=== PATIENT | female | born 1950 | race Caucasian/White ===

== ENCOUNTER → 2016-08-23 | Outpatient (CLI) | payer OTHER ==
--- NOTE | 2016-08-23 10:26 | US ---
EXAMINATION TYPE: US liver DATE OF EXAM: 08/23/2016 COMPARISON: NONE CLINICAL HISTORY: Abn Liver Function Tests R94.5. EXAM MEASUREMENTS: Liver Length: 11.7 cm Gallbladder Wall: 0.3 cm CBD: 0.5 cm Right Kidney: 10.4 x 4.0 x 5.5 cm Pancreas: visualized portions wnl Liver: Homogeneous Gallbladder: No stones seen Evidence for sonographic Benton's sign: No CBD: wnl Right Kidney: No hydronephrosis or masses seen IMPRESSION: No worrisome intrahepatic mass or intrahepatic ductal dilatation is seen.
== END | disposition home or self-care (01) ==
LOC: RADUSWWP 09:36
PROVIDERS: ATTEND Internal Medicine
DX: R94.5 Abnormal results of liver function studies (principal)
CPT/HCPCS: 76705

== ENCOUNTER → 2016-08-30 | Outpatient (CLI) | payer OTHER ==
--- NOTE | 2016-08-30 09:42 | MM ---
Reason for exam: screening (asymptomatic). Last mammogram was performed 1 year and 11 months ago. History: Patient is postmenopausal. Family history of breast cancer in 2 grandmothers. Benign stereotactic core biopsy of the left breast, February 10, 2000. Core biopsy of the left breast. Physical Findings: A clinical breast exam by your physician is recommended on an annual basis and results should be correlated with mammographic findings. MG Screening Mammo w CAD Bilateral CC and MLO view(s) were taken. Prior study comparison: September 18, 2014, bilateral MG screening mammo w CAD. June 13, 2012, bilateral digital screening mammo w/CAD. There are scattered fibroglandular densities. Benign calcifications. There is no discrete abnormality. No significant changes when compared with prior studies. ASSESSMENT: Benign, BI-RAD 2 RECOMMENDATION: Routine screening mammogram of both breasts in 1 year.
== END | disposition home or self-care (01) ==
LOC: RADMAMWWP 07:20
PROVIDERS: ATTEND Internal Medicine
DX: Z12.31 Encounter for screening mammogram for malignant neoplasm of breast (principal)

== ENCOUNTER → 2017-11-20 | Outpatient (CLI) | payer OTHER ==
--- NOTE | 2017-11-21 12:49 | MM ---
Reason for exam: screening (asymptomatic). Last mammogram was performed 1 year and 3 months ago. History: Patient is postmenopausal. Family history of breast cancer in grandmother at age 65. Benign stereotactic core biopsy of the left breast, February 10, 2000. Core biopsy of the left breast. Physical Findings: A clinical breast exam by your physician is recommended on an annual basis and results should be correlated with mammographic findings. MG Screening Mammo w CAD Bilateral CC and MLO view(s) were taken. Prior study comparison: August 30, 2016, bilateral MG screening mammo w CAD. September 18, 2014, bilateral MG screening mammo w CAD. The breast tissue is heterogeneously dense. This may lower the sensitivity of mammography. Stable benign calcifications. There is no discrete abnormality. No significant changes when compared with prior studies. ASSESSMENT: Benign, BI-RAD 2 RECOMMENDATION: Routine screening mammogram of both breasts in 1 year.
== END | disposition home or self-care (01) ==
LOC: RADMAMWWP 09:23
PROVIDERS: ATTEND Internal Medicine
DX: Z12.31 Encounter for screening mammogram for malignant neoplasm of breast (principal)
CPT/HCPCS: 77067

== ENCOUNTER → 2019-03-21 | Outpatient (CLI) | payer MEDICARE, OTHER ==
--- NOTE | 2019-03-21 13:11 | MM ---
Reason for exam: screening (asymptomatic). Last mammogram was performed 1 year and 4 months ago. History: Patient is postmenopausal. Family history of breast cancer in grandmother at age 65. Benign stereotactic core biopsy of the left breast, February 10, 2000. Core biopsy of the left breast. Physical Findings: A clinical breast exam by your physician is recommended on an annual basis and results should be correlated with mammographic findings. MG 3D Screening Mammo W/Cad Bilateral CC and MLO view(s) were taken. Prior study comparison: November 20, 2017, bilateral MG screening mammo w CAD. August 30, 2016, bilateral MG screening mammo w CAD. The breast tissue is heterogeneously dense. This may lower the sensitivity of mammography. There are benign appearing round calcifications bilaterally. Previous mammotome biopsy in the left breast. There is no discrete abnormality. ASSESSMENT: Benign, BI-RAD 2 RECOMMENDATION: Routine screening mammogram of both breasts in 1 year.
== END | disposition home or self-care (01) ==
LOC: RADMAMWWP 07:51
PROVIDERS: ATTEND Internal Medicine
DX: Z12.31 Encounter for screening mammogram for malignant neoplasm of breast (principal)
CPT/HCPCS: 77063; 77067

== ENCOUNTER 2019-08-26 10:13 | Observation (INO) | payer MEDICARE, OTHER ==
[2019-08-26] MEDS ORDERED: ASPIRIN 81 MG PO STA (10:19)
[2019-08-26] MEDS ORDERED: hydrALAZINE HCL 20 MG/ML 1 ML VIAL IVP STA (10:20)
[2019-08-26] MEDS ORDERED: NITROGLYCERIN SL TABS 0.4 MG TAB SUBLINGUAL STA (10:20)
--- NOTE | 2019-08-26 10:27 | ED ---
Chest Pain HPI - General Chief Complaint: Chest Pain Stated Complaint: chest & jaw pain Time Seen by Provider: 08/26/19 10:18 Source: patient Mode of arrival: ambulatory Limitations: no limitations - History of Present Illness Initial Comments: 68yo female presenting today for chief complaint of substernal chest pressure. Patient states that she woke up at 5 AM with substernal chest pressure she states that she got up and about 2 out the trash the pain seemed to get better however was still present. She states she noticed discomfort of her left jaw. Patient denies any numbness. Patient denies any arm pain and back pain or sharp pains denies any pain with deep inspiration leg swelling history of DVT or pulmonary embolism. Patient denies recent surgeries, immobilization or active cancer. She denies experiencing this symptoms. Before denies specific aggrevating factors. Patient states she took 650mg of aspirin this morning.Patient states she has very mild pressure, almost nonexistant. Patient denies jaw pain currently. Patient appears well on arrival, not diaphoretic. No distress. - Related Data Home Medications Medication Instructions Recorded Confirmed Aspirin EC [Ecotrin Low Dose] 81 mg PO HS 08/26/19 08/26/19 Atorvastatin [Lipitor] 40 mg PO HS 08/26/19 08/26/19 Cholecalciferol [Vitamin D3 (25 2,000 unit PO HS 08/26/19 08/26/19 Mcg = 1000 Iu)] Lisinopril-Hctz 20-25 mg 1 tab PO HS 08/26/19 08/26/19 [Zestoretic 20-25] metFORMIN HCL 1,000 mg PO BID 08/26/19 08/26/19 Allergies Allergy/AdvReac Type Severity Reaction Status Date / Time No Known Allergies Allergy Verified 08/26/19 10:17 Review of Systems ROS Statement: Those systems with pertinent positive or pertinent negative responses have been documented in the HPI. ROS Other: All systems not noted in ROS Statement are negative. EKG Findings - EKG Comments: EKG Findings:: Ventricular rate 93 bpm, TN interval 130 ms, QRS duration 84 ms, QT/QTc 56/442ms No ST elevation or depression. Past Medical History Past Medical History: Diabetes Mellitus, Hyperlipidemia, Hypertension History of Any Multi-Drug Resistant Organisms: None Reported Past Surgical History: No Surgical Hx Reported Past Psychological History: No Psychological Hx Reported Smoking Status: Never smoker Past Alcohol Use History: Occasional Past Drug Use History: None Reported General Exam - General Exam Comments Initial Comments: General: The patient is awake and alert, in no distress, no diaphoresis Eye: +3 mm pupils are equal, round and reactive to light, extra-ocular movements are intact. No nystagmus. There is normal conjunctiva bilaterally. No signs of icterus. Ears, nose, mouth and throat: There are moist mucous membranes and no oral lesions. Neck: The neck is supple, there is no tenderness or JVD. Cardiovascular: There is a regular rate and rhythm. No murmur, rub or gallop is appreciated. Respiratory: Lungs are clear to auscultation, respirations are non-labored, kristian ath sounds are equal. No wheezes, stridor, rales, or rhonchi. Musculoskeletal: Normal ROM, no tenderness. Strength 5/5. Sensation intact. Radial pulses equal bilaterally 2+. Neurological: A&O x 3. CN II-XII intact grossly, There are no obvious motor or sensory deficits. Coordination appears grossly intact. Speech is normal. Skin: Skin is warm and dry and no rashes or lesions are noted. Psychiatric: Cooperative, appropriate mood & affect, normal judgment. Limitations: no limitations Course Vital Signs 08/26/19 08/26/19 08/26/19 10:14 10:26 10:27 Temperature 98.7 F Pulse Rate 104 H 84 Pulse Rate [ 84 Opener Tender ] Respiratory 18 10 L Rate Blood Pressure 213/104 197/98 O2 Sat by Pulse 99 99 Oximetry 08/26/19 08/26/19 08/26/19 10:30 10:45 10:59 Temperature Pulse Rate 85 Pulse Rate [ Opener Tender ] Respiratory 10 L Rate Blood Pressure 189/105 93/53 O2 Sat by Pulse 95 Oximetry 08/26/19 08/26/19 08/26/19 11:00 11:15 11:30 Temperature Pulse Rate 66 80 Pulse Rate [ Opener Tender ] Respiratory 22 15 12 Rate Blood Pressure 93/58 98/54 O2 Sat by Pulse 95 96 97 Oximetry 08/26/19 11:45 Temperature Pulse Rate 72 Pulse Rate [ Opener Tender ] Respiratory 11 L Rate Blood Pressure 110/61 O2 Sat by Pulse 97 Oximetry - Reevaluation(s) Reevaluation #1: Pt has an episode of pre-syncope secondary to drop in blood pressure, became diaphoretic. Pt was to receive nitroglycerin first then only receive hydralazine if BP remained elevated. Both were given at the same time. Pt has no focal neurological deficts. States she feels good now.. BP increasing. IVF bolus running. 08/26/19 11:29 Chest Pain MDM - MDM 68yo female presenting today for cc of chest pressure, jaw pain. No known CAD history concerning risk factors/story. Pt dimer WNL. Patient will be admitted for serial troponins, cardiology evaluation. Patient agreeable to admission and care plan. Initial troponin (-). Smith agreeable to admission. Disposition Clinical Impression: Chest pressure, Jaw pain Disposition: ADMITTED IP TO THIS HOSP Condition: Stable Additional Instructions: Please use medication as discussed. Please follow-up with family doctor in the next 2 days. Please return to emergency room if the symptoms increase or worsen or for any other concerns. Is patient prescribed a controlled substance at d/c from ED?: No Referrals: Amparo Stewart MD [Primary Care Provider] - 1-2 days Time of Disposition: 11:32 Decision to Admit Reason: Admit from EC Decision Date: 08/26/19 Decision Time: 11:32
[2019-08-26 10:34] LABS: Basophils # (A) 0.1 k/uL (0-0.2); Basophils % (A) 1 %; Eosinophils # (A) 0.3 k/uL (0-0.7); Eosinophils % (A) 3 %; HCT 44.3 % (34.0-46.0); HGB 14.7 gm/dL (11.4-16.0); Lymphocytes # (A) 2.6 k/uL (1.0-4.8); Lymphocytes % (A) 32 %; MCH 30.5 pg (25.0-35.0); MCHC 33.1 g/dL (31.0-37.0); MCV 92.1 fL (80.0-100.0); Mean Platelet Volume 7.1; Monocytes # (A) 0.6 k/uL (0-1.0); Monocytes % (A) 7 %; Neutrophils # (A) 4.3 k/uL (1.3-7.7); Neutrophils % (A) 53 %; Platelet Count 251 k/uL (150-450); RBC 4.81 m/uL (3.80-5.40); RDW 13.2 % (11.5-15.5)
--- NOTE | 2019-08-26 10:40 | XR ---
EXAMINATION TYPE: XR chest 2V DATE OF EXAM: 08/26/2019 COMPARISON: NONE TECHNIQUE: PA and lateral views submitted. HISTORY: Hypertension FINDINGS: The lungs are clear and there is no pneumothorax, pleural effusion, or focal pneumonia. Lungs are c lear. No overt failure. Heart size normal. Degenerative change of the spine. IMPRESSION: 1. No acute process.
[2019-08-26 10:46] LABS: ALT 56 U/L (4-34); AST 44 U/L (14-36); African American GFR (CKD) >90 (>60 ml/min/1.73 sqM); Albumin 5.1 g/dL (3.5-5.0); Alkaline Phosphatase 111 U/L (38-126); Anion Gap 15 mmol/L; Blood Urea Nitrogen 12 mg/dL (7-17); Calcium 9.5 mg/dL (8.4-10.2); Carbon Dioxide 23 mmol/L (22-30); Chloride 98 mmol/L (98-107); Glucose 106 mg/dL (74-99); Magnesium 1.3 mg/dL (1.6-2.3); Non-African American GFR(CKD) >90 (>60 ml/min/1.73 sqM); Potassium 3.9 mmol/L (3.5-5.1); Sodium 136 mmol/L (137-145); Total Bilirubin 0.7 mg/dL (0.2-1.3); Total Protein 8.1 g/dL (6.3-8.2)
[2019-08-26 10:57] LABS: D-Dimer 0.28 mg/L FEU (<0.60); INR 0.9 (<1.2); Prothrombin Time 9.7 sec (9.0-12.0)
[2019-08-26 10:58] LABS: Partial Thromboplastin Time 21.1 sec (22.0-30.0)
[2019-08-26] MEDS ORDERED: SODIUM CHLORIDE 0.9% 500 ML 500 ML IV ONE (11:23)
[2019-08-26] MEDS ORDERED: SODIUM CHLORIDE 0.9% 1,000 ML IV ONE (11:23)
[2019-08-26] MEDS ORDERED: NITROGLYCERIN SL TABS 0.4 MG TAB SUBLINGUAL PRN (12:13)
[2019-08-26] MEDS: MAGNESIUM SULFATE-D5W PMX 1 GM in DEXTROSE/WATER 1 100ML.BAG IVPB SCH ×3 (13:50→16:45)
--- NOTE | 2019-08-26 14:22 | P.HPIM ---
History of Present Illness 68-year-old pleasant female came in with comments of substernal chest pain is started today patient chest pain is epigastric in the epigastric area as well as as well pressure-like sensation mild 3-4/10 in severity patient pain signi ficantly improved today patient was given a hydralazine and nitro patch after she came to ER which dropped her blood sugar blood pressure leading to dizziness and near syncopal episode.patient denied any fever chills patient had a Chest x- ray did not show any significant abnormality EKG did not show any capacity with changes. Her troponin is negative patient is not diaphoretic patient is not short of breath. Patient chest pain appears to be atypical.she does have history of hypertension. Patient does have history of fremitus mellitus as well as hyperlipidemia as well denied any smoking history. Denied any family history of premature coronary artery disease. Patient blood pressures significant intraoperative near syncopal episode of the hydralazine and Nitrostat and patient was given as of IV fluids and present and 100 mL of normal saline Review of Systems REVIEW OF SYSTEMS: CONSTITUTIONAL: No fever, no malaise, no fatigue. HEENT: No recent visual problems or hearing problems. Denied any sore throat. CARDIOVASCULAR: No orthopnea, PND, no palpitations, no syncope. PULMONARY: No shortness of breath, no cough, no hemoptysis. GASTROINTESTINAL: No diarrhea, no nausea, no vomiting, no abdominal pain. NEUROLOGICAL: No headaches, no weakness, no numbness. HEMATOLOGICAL: Denies any bleeding or petechiae. GENITOURINARY: Denies any burning micturition, frequency, or urgency. MUSCULOSKELETAL/RHEUMATOLOGICAL: Denies any joint pain, swelling, or any muscle pain. ENDOCRINE: Denies any polyuria or polydipsia. The rest of the 14-point review of systems is negative. Past Medical History Past Medical History: Diabetes Mellitus, Hyperlipidemia, Hypertension History of Any Multi-Drug Resistant Organisms: None Reported Past Surgical History: No Surgical Hx Reported Past Psychological History: No Psychological Hx Reported Smoking Status: Never smoker Past Alcohol Use History: Occasional Past Drug Use History: None Reported Medications and Allergies Home Medications Medication Instructions Recorded Confirmed Type Aspirin EC [Ecotrin Low Dose] 81 mg PO HS 08/26/19 08/26/19 History Atorvastatin [Lipitor] 40 mg PO HS 08/26/19 08/26/19 History Cholecalciferol [Vitamin D3 (25 2,000 unit PO HS 08/26/19 08/26/19 History Mcg = 1000 Iu)] Lisinopril-Hctz 20-25 mg 1 tab PO HS 08/26/19 08/26/19 History [Zestoretic 20-25] metFORMIN HCL 1,000 mg PO BID 08/26/19 08/26/19 History Allergies Allergy/AdvReac Type Severity Reaction Status Date / Time No Known Allergies Allergy Verified 08/26/19 10:17 Physical Exam Vitals: Vital Signs Temp Pulse Pulse Resp BP Pulse Ox 08/26/19 13:51 98.7 F 74 18 138/72 97 08/26/19 13:48 74 18 138/72 08/26/19 13:15 138/72 08/26/19 13:00 90 17 129/68 97 08/26/19 12:58 88 18 129/68 98 08/26/19 12:45 81 127/69 98 08/26/19 12:30 79 11 L 133/68 98 08/26/19 12:15 89 8 L 141/91 97 08/26/19 12:00 93 8 L 105/55 98 08/26/19 11:45 72 11 L 110/61 97 08/26/19 11:30 12 98/54 97 08/26/19 11:15 80 15 93/58 96 08/26/19 11:00 66 22 95 08/26/19 10:59 93/53 08/26/19 10:45 85 10 L 95 08/26/19 10:30 189/105 08/26/19 10:27 84 08/26/19 10:26 84 10 L 197/98 99 08/26/19 10:14 98.7 F 104 H 18 213/104 99 Intake and Output 08/25/19 08/26/19 08/26/19 22:59 06:59 14:59 Intake Total 1100 Balance 1100 Intake: Amount of Fluid Infused ( 1100 ml) Other: Weight 70.307 kg PHYSICAL EXAMINATION: GENERAL: The patient is alert and oriented x3, not in any acute distress. Well developed, well nourished. HEENT: Pupils are round and equally reacting to light. EOMI. No scleral icterus. No conjunctival pallor. Normocephalic, atraumatic. No pharyngeal erythema. No thyromegaly. CARDIOVASCULAR: S1 and S2 present. No murmurs, rubs, or gallops. PULMONARY: Chest is clear to auscultation, no wheezing or crackles. ABDOMEN: Soft, nontender, nondistended, normoactive bowel sounds. No palpable organomegaly. MUSCULOSKELETAL: No joint swelling or deformity. EXTREMITIES: No cyanosis, clubbing, or pedal edema. NEUROLOGICAL: Gross neurological examination did not reveal any focal deficits. SKIN: No rashes. Results CBC & Chem 7: 08/26/19 10:15 08/26/19 10:15 Labs: Abnormal Lab Results - Last 24 Hours (Table) 08/26/19 08/26/19 Range/Units 10:15 10:15 APTT 21.1 L (22.0-30.0) sec Sodium 136 L (137-145) mmol/L Glucose 106 H (74-99) mg/dL Magnesium 1.3 L (1.6-2.3) mg/dL AST 44 H (14-36) U/L ALT 56 H (4-34) U/L Albumin 5.1 H (3.5-5.0) g/dL Assessment and Plan Plan: -chest pain: Patient chest pain appears to be difficult will rule out acute coronary syndromes patient probably will need a stress test so because of her risk factors cardiology will evaluate the patient.etiology of chest pain is not clear . -Hypertension resume her lisinopril for low vitamin Red patient blood p ressure was low because of her Nitrostat and hydralazine. Patient was given some believe it will be okay to give her lisinopril tomorrow -Type 2 diabetes mellitus patient was started on sliding scale insulin metformin will be held temporally -Hyperlipidemia With atorvastatin -DVT prophylaxis early ambulation
[2019-08-26 16:55] LABS: Glucose,Whole Blood 148 mg/dL (75-99)
[2019-08-26] MEDS: SODIUM CHLORIDE 0.9% 1,000 ML IV SCH ×2 (16:58→23:44)
[2019-08-26] MEDS: INSULIN ASPART (NovoLOG) 100 UNIT/ML VIAL SQ SCH ×2 (17:02→20:42)
[2019-08-26 20:25] LABS: Glucose,Whole Blood 148 mg/dL (75-99)
[2019-08-26] MEDS ORDERED: LISINOPRIL-HCTZ 20-25 MG 1 EACH TAB PO SCH (21:00)
[2019-08-26] MEDS ORDERED: ATORVASTATIN 40 MG TAB PO SCH (21:00)
[2019-08-26 23:33] VITALS: RESP 16
[2019-08-27 07:01] LABS: Glucose,Whole Blood 125 mg/dL (75-99)
[2019-08-27] MEDS: INSULIN ASPART (NovoLOG) 100 UNIT/ML VIAL SQ SCH ×2 (07:32→11:30)
[2019-08-27] MEDS: LISINOPRIL 20 MG TAB PO SCH ×2 (07:32→08:02)
[2019-08-27] MEDS: ASPIRIN 325 MG TAB PO SCH ×2 (07:32→08:02)
[2019-08-27] MEDS: SODIUM CHLORIDE 0.9% 1,000 ML IV SCH (07:32)
[2019-08-27] MEDS ORDERED: HYDROCHLOROTHIAZIDE 25 MG TAB PO SCH (09:00)
[2019-08-27 09:05] LABS: HCT 37.7 % (34.0-46.0); HGB 12.5 gm/dL (11.4-16.0); MCH 31.1 pg (25.0-35.0); MCHC 33.1 g/dL (31.0-37.0); Mean Platelet Volume 7.2; Platelet Count 220 k/uL (150-450); RBC 4.01 m/uL (3.80-5.40); RDW 13.6 % (11.5-15.5); WBC 6.4 k/uL (3.8-10.6)
[2019-08-27] MEDS ORDERED: TRIAMTERENE-HCTZ 37.5-25MG 1 EACH CAP PO SCH (09:15)
[2019-08-27 09:22] LABS: African American GFR (CKD) >90 (>60 ml/min/1.73 sqM); Anion Gap 6 mmol/L; Blood Urea Nitrogen 11 mg/dL (7-17); Calcium 8.5 mg/dL (8.4-10.2); Carbon Dioxide 25 mmol/L (22-30); Chloride 107 mmol/L (98-107); Cholesterol 171 mg/dL (<200); Glucose 127 mg/dL (74-99); HDL Cholesterol 57 mg/dL (40-60); LDL Cholesterol,Calculated 77 mg/dL (0-99); Non-African American GFR(CKD) >90 (>60 ml/min/1.73 sqM); Potassium 4.5 mmol/L (3.5-5.1); Sodium 138 mmol/L (137-145); Triglycerides 186 mg/dL (<150)
--- NOTE | 2019-08-27 09:56 | P.CRDCN ---
<Lalita Angel - Last Filed: 08/27/19 09:54> History of Present Illness History of present illness: HISTORY OF PRESENTING ILLNESS This is a pleasant 68-year-old female past medical history significant for diabetes mellitus, hypertension and dyslipidemia. 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 We have been asked to see in consultation for chest pain. She states she woke up yesterday morning around 0500 with a discomfort in her chest in the mid-sternal region. She initially thought maybe she had slept wrong or pulled a muscle. She attempted to change her position but just couldn't get comfortable. She got out of bed to start her day. As the day went on she also was feeling a sharp discomfort shooting down her right arm at times. She checked her blood pressure and states it was around 155/90. Shortly thereafter she felt a full sensation in the right jaw. She denies feeling any associated shortness of breath, palpitations, dizziness, nausea, vomiting or diaphoresis. Given her ongoing symptoms of chest pain, jaw and arm pain she called her PCP who advised she come to the ER for evaluation. On arrival she was having ongoing chest and jaw discomfort, the arm pain had subsided. Her blood pressure on arrival was 213/104. She takes her lisinopril/hctz at night and did take it the night before. She was given hydralazine 10 mg IV and her blood pressure did come down. She states she does check her blood pressure at home usually weekly, but sometimes more often and it typically runs around 130's systolic over 80. Chest, jaw and arm pain has resolved since admission. DIAGNOSTICS EKG reveals sinus mechanism with single PAC. Chest xray negative for an acute cardiopulmonary process. Laboratory reviewed, cardiac enzymes negative 3, CBC unremarkable, d-dimer 0.28, sodium 136, potassium 3.9, creatinine 0.6, mesion 1.3, AST 44 and ALT 56. Current cardiac medications include lisinopril/HCTZ 20/25 mg at bedtime, aspirin 81 mg daily and atorvastatin 40 mg daily. REVIEW OF SYSTEMS At the time of my exam: CONSTITUTIONAL: Denies fever or chills. CARDIOVASCULAR: Denies chest pain, shortness of breath, orthopnea, PND or palpitations. RESPIRATORY: Denies cough. GASTROINTESTINAL: Denies abdominal pain, diarrhea, constipation, nausea or vomiting. MUSCULOSKELETAL: Denies myalgias. NEUROLOGIC: Denies numbness, tingling or weakness. ENDOCRINE: Denies fatigue, weight change, polydipsia or polyurina. GENITOURINARY: Denies burning, hematuria or urgency with micturation. HEMATOLOGIC: Denies history of anemia or bleeding. PHYSICAL EXAMINATION Blood pressure 139/82 heart rate 94 afebrile and maintaining oxygen saturation on room air. CONSTITUTIONAL: No apparent distress. HEENT: Head is normocephalic. Pupils are equal, round. Sclerae anicteric. Mucous membranes of the mouth are moist. No JVD. No carotid bruit. CHEST EXAMINATION: Lungs are clear to auscultation. No chest wall tenderness is noted on palpation or with deep breathing. HEART EXAMINATION: Regular rate and rhythm. S1, S2 heard. Soft systolic ejection murmur at the apex, no gallops or rub. ABDOMEN: Soft, nontender. Positive bowel sounds. EXTREMITIES: 2+ peripheral pulses, no lower extremity edema and no calf tenderness. NEUROLOGIC EXAMINATION: Patient is awake, alert and oriented x3. ASSESSMENT Chrst pain, an acute coronary event has been ruled out. Hypertensive emergency Hypomagnesemia History of hypertension Diabetes mellitus Dyslipidemia PLAN An acute coronary event has been ruled out. Obtain 2D echocardiogram and doppler study to assess cardiac structure and function. Repeat magnesium level. Check lipid profile. Resume lisinopril and discontinue hydrochlorothiazide. Initiate dyazide for optimal blood pressure control. This will also retain some level of magnesium. Perform stress echo to assess for stress induced ischemia. Thank you kindly for this consultation. Nurse Practitioner note has been reviewed, I agree with a documented findings and plan of care. Patient was seen and examined. Past Medical History Past Medical History: Diabetes Mellitus, Hyperlipidemia, Hypertension Additional Past Medical History / Comment(s): breast biopsy-negative. History of Any Multi-Drug Resistant Organisms: None Reported Past Surgical History: No Surgical Hx Reported Past Anesthesia/Blood Transfusion Reactions: No Reported Reaction Past Psychological History: No Psychological Hx Reported Smoking Status: Never smoker Past Alcohol Use History: Occasional Past Drug Use History: None Reported Medications and Allergies Home Medications Medication Instructions Recorded Confirmed Type Aspirin EC [Ecotrin Low Dose] 81 mg PO HS 08/26/19 08/26/19 History Atorvastatin [Lipitor] 40 mg PO HS 08/26/19 08/26/19 History Cholecalciferol [Vitamin D3 (25 2,000 unit PO HS 08/26/19 08/26/19 History Mcg = 1000 Iu)] Lisinopril-Hctz 20-25 mg 1 tab PO HS 08/26/19 08/26/19 History [Zestoretic 20-25] metFORMIN HCL 1,000 mg PO BID 08/26/19 08/26/19 History Allergies Allergy/AdvReac Type Severity Reaction Status Date / Time No Known Allergies Allergy Verified 08/26/19 10:17 Physical Exam Vitals: Vital Signs Temp Pulse Pulse Pulse Resp BP BP 08/27/19 07:53 16 08/27/19 03:31 97.7 F 94 16 139/82 08/26/19 23:23 97.6 F 78 16 146/81 08/26/19 19:30 97.7 F 80 14 136/70 08/26/19 16:00 97.9 F 98 14 130/73 08/26/19 14:31 98.2 F 102 H 12 145/79 08/26/19 13:51 98.7 F 74 18 138/72 08/26/19 13:48 74 18 138/72 08/26/19 13:15 138/72 08/26/19 13:00 90 17 129/68 08/26/19 12:58 88 18 129/68 08/26/19 12:45 81 127/69 08/26/19 12:30 79 11 L 133/68 08/26/19 12:15 89 8 L 141/91 08/26/19 12:00 93 8 L 105/55 08/26/19 11:45 72 11 L 110/61 08/26/19 11:30 12 98/54 08/26/19 11:15 80 15 93/58 08/26/19 11:00 66 22 08/26/19 10:59 93/53 08/26/19 10:45 85 10 L 08/26/19 10:30 189/105 08/26/19 10:27 84 08/26/19 10:26 84 10 L 197/98 08/26/19 10:14 98.7 F 104 H 18 213/104 Pulse Ox 08/27/19 07:53 08/27/19 03:31 97 08/26/19 23:23 96 08/26/19 19:30 97 08/26/19 16:00 97 08/26/19 14:31 97 08/26/19 13:51 97 08/26/19 13:48 08/26/19 13:15 08/26/19 13:00 97 08/26/19 12:58 98 08/26/19 12:45 98 08/26/19 12:30 98 08/26/19 12:15 97 08/26/19 12:00 98 08/26/19 11:45 97 08/26/19 11:30 97 08/26/19 11:15 96 08/26/19 11:00 95 08/26/19 10:59 08/26/19 10:45 95 08/26/19 10:30 08/26/19 10:27 08/26/19 10:26 99 08/26/19 10:14 99 Intake and Output 08/26/19 08/27/19 08/27/19 22:59 06:59 14:59 Intake Total 270 0 Balance 270 0 Intake: Oral 270 0 Other: Voiding Method Toilet Toilet # Voids 2 1 # Bowel Movements 1 Results 08/27/19 08:44 08/27/19 08:44 Cardiac Enzymes 08/26/19 08/26/19 08/26/19 Range/Units 10:15 10:15 16:02 AST 44 H (14-36) U/L Troponin I <0.012 <0.012 (0.000-0.034) ng/mL 08/26/19 Range/Units 22:32 AST (14-36) U/L Troponin I <0.012 (0.000-0.034) ng/mL Coagulation 08/26/19 Range/Units 10:15 PT 9.7 (9.0-12.0) sec APTT 21.1 L (22.0-30.0) sec CBC 08/26/19 Range/Units 10:15 WBC 8.0 (3.8-10.6) k/uL RBC 4.81 (3.80-5.40) m/uL Hgb 14.7 (11.4-16.0) gm/dL Hct 44.3 (34.0-46.0) % Plt Count 251 (150-450) k/uL Comprehensive Metabolic Panel 08/26/19 Range/Units 10:15 Sodium 136 L (137-145) mmol/L Potassium 3.9 (3.5-5.1) mmol/L Chloride 98 (98-107) mmol/L Carbon Dioxide 23 (22-30) mmol/L BUN 12 (7-17) mg/dL Creatinine 0.60 (0.52-1.04) mg/dL Glucose 106 H (74-99) mg/dL Calcium 9.5 (8.4-10.2) mg/dL AST 44 H (14-36) U/L ALT 56 H (4-34) U/L Alkaline Phosphatase 111 (38-126) U/L Total Protein 8.1 (6.3-8.2) g/dL Albumin 5.1 H (3.5-5.0) g/dL Current Medications Generic Name Dose Route Start Last Admin Trade Name Freq PRN Reason Stop Dose Admin Aspirin 81 mg 08/27/19 09:00 Aspirin PO DAILY EARL Atorvastatin Calcium 40 mg 08/26/19 21:00 08/26/19 20:42 Lipitor PO 40 mg HS EARL Administration Hydrochlorothiazide 25 mg 08/27/19 09:00 Hydrodiuril PO DAILY EARL Sodium Chloride 1,000 mls @ 100 mls/hr 08/26/19 14:15 08/27/19 07:32 Saline 0.9% IV 100 mls/hr .Q10H EARL Administration Insulin Aspart 0 unit 08/26/19 17:30 08/27/19 07:32 Novolog SQ Not Given ACHS [facility] Protocol Lisinopril 20 mg 08/27/19 09:00 08/27/19 08:02 Zestril PO 20 mg DAILY EARL Administration Nitroglycerin 0.4 mg 08/26/19 12:13 Nitrostat SUBLINGUAL Q5M PRN Chest Pain Intake and Output 08/26/19 08/27/19 08/27/19 22:59 06:59 14:59 Intake Total 270 0 Balance 270 0 Intake: Oral 270 0 Other: Voiding Method Toilet Toilet # Voids 2 1 # Bowel Movements 1 08/26/19 10:15 08/26/19 10:15 <Ronald Craig - Last Filed: 08/27/19 10:56> Physical Exam Vitals: Vital Signs Temp Pulse Pulse Resp BP BP Pulse Ox 08/27/19 09:16 98.0 F 72 16 145/78 96 08/27/19 07:53 16 08/27/19 03:31 97.7 F 94 16 139/82 97 08/26/19 23:23 97.6 F 78 16 146/81 96 08/26/19 19:30 97.7 F 80 14 136/70 97 08/26/19 16:00 97.9 F 98 14 130/73 97 08/26/19 14:31 98.2 F 102 H 12 145/79 97 08/26/19 13:51 98.7 F 74 18 138/72 97 08/26/19 13:48 74 18 138/72 08/26/19 13:15 138/72 08/26/19 13:00 90 17 129/68 97 08/26/19 12:58 88 18 129/68 98 08/26/19 12:45 81 127/69 98 08/26/19 12:30 79 11 L 133/68 98 08/26/19 12:15 89 8 L 141/91 97 08/26/19 12:00 93 8 L 105/55 98 08/26/19 11:45 72 11 L 110/61 97 08/26/19 11:30 12 98/54 97 08/26/19 11:15 80 15 93/58 96 08/26/19 11:00 66 22 95 08/26/19 10:59 93/53 Intake and Output 08/26/19 08/27/19 08/27/19 22:59 06:59 14:59 Intake Total 270 0 Balance 270 0 Intake: Oral 270 0 Other: Voiding Method Toilet Toilet # Voids 2 1 # Bowel Movements 1 Results 08/27/19 08:44 08/27/19 08:44 Cardiac Enzymes 08/26/19 08/26/19 08/26/19 Range/Units 10:15 16:02 22:32 Troponin I <0.012 <0.012 <0.012 (0.000-0.034) ng/mL Coagulation 08/26/19 Range/Units 10:15 PT 9.7 (9.0-12.0) sec APTT 21.1 L (22.0-30.0) sec Lipids 08/27/19 Range/Units 08:44 Triglycerides 186 H (<150) mg/dL Cholesterol 171 (<200) mg/dL HDL Cholesterol 57 (40-60) mg/dL CBC 08/27/19 Range/Units 08:44 WBC 6.4 (3.8-10.6) k/uL RBC 4.01 (3.80-5.40) m/uL Hgb 12.5 (11.4-16.0) gm/dL Hct 37.7 (34.0-46.0) % Plt Count 220 (150-450) k/uL Comprehensive Metabolic Panel 08/27/19 Range/Units 08:44 Sodium 138 (137-145) mmol/L Potassium 4.5 (3.5-5.1) mmol/L Chloride 107 (98-107) mmol/L Carbon Dioxide 25 (22-30) mmol/L BUN 11 (7-17) mg/dL Creatinine 0.57 (0.52-1.04) mg/dL Glucose 127 H (74-99) mg/dL Calcium 8.5 (8.4-10.2) mg/dL Current Medications Generic Name Dose Route Start Last Admin Trade Name Freq PRN Reason Stop Dose Admin Aspirin 81 mg 08/28/19 09:00 08/27/19 08:24 Aspirin PO Not Given DAILY EARL Atorvastatin Calcium 40 mg 08/26/19 21:00 08/26/19 20:42 Lipitor PO 40 mg HS EARL Administration Hydrochlorothiazide 25 mg 08/27/19 09:00 08/27/19 08:56 Hydrodiuril PO Not Given DAILY EARL Sodium Chloride 1,000 mls @ 100 mls/hr 08/26/19 14:15 08/27/19 07:32 Saline 0.9% IV 100 mls/hr .Q10H EARL Administration Insulin Aspart 0 unit 08/26/19 17:30 08/27/19 07:32 Novolog SQ Not Given ACHS EARL Protocol Lisinopril 20 mg 08/27/19 09:00 08/27/19 08:02 Zestril PO 20 mg DAILY EARL Administration Nitroglycerin 0.4 mg 08/26/19 12:13 Nitrostat SUBLINGUAL Q5M PRN Chest Pain Triamterene/HCTZ 1 each 08/27/19 09:15 Dyazide PO DAILY EARL Intake and Output 08/26/19 08/27/19 08/27/19 22:59 06:59 14:59 Intake Total 270 0 Balance 270 0 Intake: Oral 270 0 Other: Voiding Method Toilet Toilet # Voids 2 1 # Bowel Movements 1 08/27/19 08:44 08/27/19 08:44
--- NOTE | 2019-08-27 10:56 | P.PCN ---
Preoperative Diagnosis: Impression has a BCNX in chamber pacemaker implanted in [place] Threshold is less than 1 V at 0.4 ms R waves between 45 mV Pacing impedance normal The device is been programmed to VVIR 60 to 1:30 bpm, patient has underlying atrial fibrillation with normal heart rates Suggest Reprogrammed device to VVI 50 beats a minute
--- NOTE | 2019-08-27 11:05 | P.DS ---
Providers Date of admission: 08/26/19 11:30 Attending physician: Romina Oro Consults: 08/26/19 12:13 Consult Physician Urgent Consulting Provider: Naveen Bailey Consult Reason/Comments: CP r/o Do you want consulting provider notified?: Yes, Notify in am Primary care physician: Amparo Stewart [facility] Course: Patient is undergoing stress test admitted for chest pain, we ruled out acute coronary syndromes. Patient's present medications were changed by cardiology and patient will be discharged today patient will benefit from a repeat basic metabolic profile in about a week as the patient was started on new diuretic. PHYSICAL EXAMINATION: GENERAL: The patient is alert and oriented x3, not in any acute distress. Well developed, well nourished. HEENT: Pupils are round and equally reacting to light. EOMI. No scleral icterus. No conjunctival pallor. Normocephalic, atraumatic. No pharyngeal erythema. No thyromegaly. CARDIOVASCULAR: S1 and S2 present. No murmurs, rubs, or gallops. PULMONARY: Chest is clear to auscultation, no wheezing or crackles. ABDOMEN: Soft, nontender, nondistended, normoactive bowel sounds. No palpable organomegaly. MUSCULOSKELETAL: No joint swelling or deformity. EXTREMITIES: No cyanosis, clubbing, or pedal edema. NEUROLOGICAL: Gross neurological examination did not reveal any focal deficits. SKIN: No rashes. Please refer to my HPI from yesterday for further details of hospitalization and the other medical problems were addressed during this hospitalization Patient Condition at Discharge: Stable Plan - Discharge Summary Discharge Rx Participant: No New Discharge Prescriptions: New Triamterene-Hctz 37.5-25Mg [Dyazide 37.5-25 Capsule] 1 each PO DAILY #90 cap Lisinopril [Zestril] 20 mg PO DAILY #90 tab Discontinued Lisinopril-Hctz 20-25 mg [Zestoretic 20-25] 1 tab PO HS No Action metFORMIN HCL 1,000 mg PO BID Cholecalciferol [Vitamin D3 (25 Mcg = 1000 Iu)] 2,000 unit PO HS Atorvastatin [Lipitor] 40 mg PO HS Aspirin EC [Ecotrin Low Dose] 81 mg PO HS Discharge Medication List Aspirin EC [Ecotrin Low Dose] 81 mg PO HS 08/26/19 [History] Atorvastatin [Lipitor] 40 mg PO HS 08/26/19 [History] Cholecalciferol [Vitamin D3 (25 Mcg = 1000 Iu)] 2,000 unit PO HS 08/26/19 [History] metFORMIN HCL 1,000 mg PO BID 08/26/19 [History] Lisinopril [Zestril] 20 mg PO DAILY #90 tab 08/27/19 [Rx] Triamterene-Hctz 37.5-25Mg [Dyazide 37.5-25 Capsule] 1 each PO DAILY #90 cap 08/27/19 [Rx] Follow up Appointment(s)/Referral(s): Ronald Craig MD [STAFF PHYSICIAN] - 3 Weeks Amparo Stewart MD [Primary Care Provider] - 1-2 days Patient Instructions/Handouts: Cardiac Stress Test (DC) Activity/Diet/Wound Care/Special Instructions: Please use medication as discussed. Please follow-up with family doctor in the next 2 days. Please return to emergency room if the symptoms increase or worsen or for any other concerns. Discharge Disposition: HOME SELF-CARE
[2019-08-27 11:28] VITALS: BP 154/82; PULSE 83; TEMP 98.1
[2019-08-27 11:30] LABS: Glucose,Whole Blood 138 mg/dL (75-99)
--- NOTE | 2019-08-27 12:05 | P.STRESS ---
- Stress Test Note Stress Test Results/Findings: Exam Performed: stress echo exercise with con Exam Date: 08/27/19 Reason for Exam: Chest Pain Height: 5 ft 2 in Weight: 70.31 kg Protocol: [place] Stage: 3 Duration of Exercise: 7:59 Resting Heart Rate: 71 Resting Blood Pressure: 140/64 Maximum Achieved Heart Rate: 173 Maximum Achieved Blood Pressure: 217/78 85% PMHR: 131 100% PMHR: 154 METS: 9.3 Technologist Comment: Stress Test Results/Findings: Baseline heart rate 71 beats a minute, Baseline blood pressure 140/64 mmHg the center ECG shows sinus rhythm with normal ST segments Patient exercised on a [place] protocol for 8 minutes achieving a peak heart rate of 173 beats a minute. She had an intermediate hypertensive response to exerc ise. Peak blood pressure 217/78 mmHg and 220/92 mmHg PVCs and ventricular couplets were noted during the stress test no nonsustained ventricular tachycardia no ST segment abnormalities noted at peak excise or during early recovery Mild ST depression in lead into recovery 0.5 mm but without any symptoms Baseline 2-D echo showed normal LV systolic function without segmental wall motion abnormalities Definity contrast was used Extremities there was excellent augmentation of oral LV contractility without wall pulmonary wall motion amenities @Recovery lesions over systolic function with normal Impression Hypertensive response to exercise Frequent PVCs during exercise No definite ECG evidence for ischemia in peak excise and recovery but subtle ST segment depression late into recovery No commensurate echocardiographic abnormalities No echocardiographic evidence for ischemia No symptoms
[2019-08-28] MEDS ORDERED: ASPIRIN 81 MG PO SCH (09:00)
--- NOTE | 2019-08-28 16:45 | ECHOS ---
Stress Test Results/Findings: Exam Performed: stress echo exercise with con Exam Date: 08/27/19 Reason for Exam: Chest Pain Height: 5 ft 2 in Weight: 70.31 kg Protocol: [place] Stage: 3 Duration of Exercise: 7:59 Resting Heart Rate: 71 Resting Blood Pressure: 140/64 Maximum Achieved Heart Rate: 173 Maximum Achieved Blood Pressure: 217/78 85% PMHR: 131 100% PMHR: 154 METS: 9.3 Technologist Comment: Stress Test Results/Findings: Baseline heart rate 71 beats a minute, Baseline blood pressure 140/64 mmHg the center ECG shows sinus rhythm with normal ST segments Patient exercised on a [place] protocol for 8 minutes achieving a peak heart rate of 173 beats a minute. She had an intermediate hypertensive response to exercise. Peak blood pressure 217/78 mmHg and 220/92 mmHg PVCs and ventricular couplets were noted during the stress test no nonsustained ventricular tachycardia no ST segment abnormalities noted at peak excise or during early recovery Mild ST depression in lead into recovery 0.5 mm but without any symptoms Baseline 2-D echo showed normal LV systolic function without segmental wall motion abnormalities Definity contrast was used Extremities there was excellent augmentation of oral LV contractility without wall pulmonary wall motion amenities @Recovery lesions over systolic function with normal Impression Hypertensive response to exercise Frequent PVCs during exercise No definite ECG evidence for ischemia in peak excise and recovery but subtle ST segment depression late into recovery No commensurate echocardiographic abnormalities No echocardiographic evidence for ischemia No symptoms MTDD
--- NOTE | 2019-08-28 18:59 | ECHOF ---
Referral Reason:cp, htn MEASUREMENTS -------- HEIGHT: 157.5 cm WEIGHT: 70.3 kg BP: 139/82 IVSd: 1.3 cm (0.6 - 1.1) LVIDd: 4.4 cm (3.9 - 5.3) LVPWd: 1.4 cm (0.6 - 1.1) IVSs: 1.7 cm LVIDs: 2.9 cm LVPWs: 1.8 cm LAESV Index (A-L): 36.04 ml/m Ao Diam: 2.7 cm (2.0 - 3.7) AV Cusp: 2.0 cm (1.5 - 2.6) LA Diam: 2.9 cm (2.7 - 3.8) MV EXCURSION: 17.354 mm (> 18.000) MV EF SLOPE: 107 mm/s (70 - 150) EPSS: 0.6 cm MV E Heriberto: 1.01 m/s MV DecT: 230 ms MV A Heriberto: 0.86 m/s MV E/A Ratio: 1.18 FINDINGS -------- Sinus rhythm. This was a technically good study. The left ventricular size is normal. There is mild concentric left ventricular hypertrophy. Overa ll left ventricular systolic function is normal with, an EF between 55 - 60 %. The right ventricle is normal in size. LA is moderately dilated 34-39 ml/m2 The right atrial size is normal. Interatrial and interventricular septum intact. The aortic valve is trileaflet and appears structurally normal. The mitral valve is normal. There is trace mitral regurgitation. The tricuspid valve appears structurally normal. Trace tricuspid regurgitation present. Right curly tricular systolic pressure is normal at < 35 mmHg. There is no pulmonic regurgitation present. The aortic root size is normal. Normal inferior vena cava with normal inspiratory collapse consistent with estimated right atrial pre ssure of 5 mmHg. There is no pericardial effusion. CONCLUSIONS -------- 1. Sinus rhythm. 2. This was a technically good study. 3. The left ventricular size is normal. 4. There is mild concentric left ventricular hypertrophy. 5. Overall left ventricular systolic function is normal with, an EF between 55 - 60 %. 6. The right ventricle is normal in size. 7. LA is moderately dilated 34-39 ml/m2 8. The right atrial size is normal. 9. Interatrial and interventricular septum intact. 10. The aortic valve is trileaflet and appears structurally normal. 11. The mitral valve is normal. 12. There is trace mitral regurgitation. 13. The tricuspid valve appears structurally normal. 14. Trace tricuspid regurgitation present. 15. Right ventricular systolic pressure is normal at < 35 mmHg. 16. There is no pulmonic regurgitation present. 17. The aortic root size is normal. 18. Normal inferior vena cava with normal inspiratory collapse consistent with estimated right atrial pressure of 5 mmHg. 19. There is no pericardial effusion. [employer] SALESPERSON: Davida Sanchez RDCS
== END 2019-08-27 14:42 | disposition home or self-care (01) ==
LOC: EC 10:13 → 1SOBS 11:30
PROVIDERS: ADMIT Hospitalist; ATTEND Hospitalist
DX: R07.89 Other chest pain (principal); I16.1 Hypertensive emergency; I10 Essential (primary) hypertension; R55 Syncope and collapse; I95.2 Hypotension due to drugs; T46.3X5A Adverse effect of coronary vasodilators, initial encounter; T46.5X5A Adverse effect of other antihypertensive drugs, initial encounter; E83.42 Hypomagnesemia; I48.91 Unspecified atrial fibrillation; E78.5 Hyperlipidemia, unspecified; E11.9 Type 2 diabetes mellitus without complications; R10.13 Epigastric pain; M79.603 Pain in arm, unspecified; R68.84 Jaw pain; Z03.818 Encounter for observation for suspected exposure to other biological agents ruled out; Z79.84 Long term (current) use of oral hypoglycemic drugs; Z79.82 Long term (current) use of aspirin; Z79.899 Other long term (current) drug therapy; Z95.0 Presence of cardiac pacemaker
CPT/HCPCS: 96361 ×3; 96366; 96365; 96375; 99285; 36415; 93005 ×2; 93306; 85379; 80061; 80053; 80048; 83735 ×2; 84484; 85025; 85027; 85610; 85730; 71046; G0378 ×2; C8930; U0003; J0360; J3475; Q9950; 93351

== ENCOUNTER → 2020-07-16 | Outpatient (CLI) | payer MEDICARE, OTHER ==
--- NOTE | 2020-07-19 12:03 | MM ---
Reason for exam: screening (asymptomatic). Last mammogram was performed 1 year and 4 months ago. History: Patient is postmenopausal. Family history of breast cancer in grandmother at age 65. Benign stereotactic core biopsy of the left breast, February 10, 2000. Core biopsy of the left breast. Physical Findings: A clinical breast exam by your physician is recommended on an annual basis and results should be correlated with mammographic findings. MG 3D Screening Mammo W/Cad Bilateral CC and MLO view(s) were taken. Prior study comparison: March 21, 2019, bilateral MG 3d screening mammo w/cad. November 20, 2017, bilateral MG screening mammo w CAD. The breast tissue is heterogeneously dense. This may lower the sensitivity of mammography. There are benign appearing round dystrophic calcifications bilaterally. Previous mammotome biopsy in the left breast. There is no discrete abnormality. ASSESSMENT: Benign, BI-RAD 2 RECOMMENDATION: Routine screening mammogram of both breasts in 1 year.
== END | disposition home or self-care (01) ==
LOC: RADMAMWWP 07:13
PROVIDERS: ATTEND Internal Medicine
DX: Z12.31 Encounter for screening mammogram for malignant neoplasm of breast (principal); Z78.0 Asymptomatic menopausal state; Z80.3 Family history of malignant neoplasm of breast
CPT/HCPCS: 77063; 77067

== ENCOUNTER 2021-10-04 07:32 | Emergency (ER) | payer MEDICARE, OTHER ==
[2021-10-04 07:40] VITALS: TEMP 99.5
--- NOTE | 2021-10-04 07:53 | ED ---
General Adult HPI - General Chief complaint: Upper Respiratory Infection Stated complaint: Covid+/antibodies Time Seen by Provider: 10/04/21 07:44 Source: patient, RN notes reviewed, old records reviewed Mode of arrival: ambulatory Limitations: no limitations - History of Present Illness Initial comments: 70-year-old female presenting for evaluation of coronavirus and requesting monoclonal antibody infusion. Patient has been sick for the past 2 or 3 days. She has some nasal congestion, sore throat, cough and fever. No dyspnea. She has been eating and drinking. She has history of hypertension and diabetes. She is had 3 total vaccines against coronavirus. - Related Data Home Medications Medication Instructions Recorded Confirmed Aspirin EC [Ecotrin Low Dose] 81 mg PO HS 08/26/19 08/26/19 Atorvastatin [Lipitor] 40 mg PO HS 08/26/19 08/26/19 Cholecalciferol [Vitamin D3 (25 2,000 unit PO HS 08/26/19 08/26/19 Mcg = 1000 Iu)] metFORMIN HCL [Glucophage] 1,000 mg PO BID 08/26/19 08/26/19 Previous Rx's Medication Instructions Recorded Triamterene-Hctz 37.5-25Mg 1 each PO DAILY #90 cap 08/27/19 [Dyazide 37.5-25 Capsule] lisinopriL [Zestril] 20 mg PO DAILY #90 tab 08/27/19 Allergies Allergy/AdvReac Type Severity Reaction Status Date / Time No Known Allergies Allergy Verified 10/04/21 07:40 Review of Systems ROS Statement: Those systems with pertinent positive or pertinent negative responses have been documented in the HPI. ROS Other: All systems not noted in ROS Statement are negative. Past Medical History Past Medical History: Diabetes Mellitus, Hyperlipidemia, Hypertension Additional Past Medical History / Comment(s): breast biopsy-negative. History of Any Multi-Drug Resistant Organisms: None Reported Past Surgical History: No Surgical Hx Reported Past Anesthesia/Blood Transfusion Reactions: No Reported Reaction Past Psychological History: No Psychological Hx Reported Smoking Status: Never smoker Past Alcohol Use History: Occasional Past Drug Use History: None Reported General Exam Limitations: no limitations General appearance: alert, in no apparent distress Head exam: Present: atraumatic, normocephalic Eye exam: Present: normal appearance, PERRL Neck exam: Present: normal inspection, full ROM. Absent: tenderness Respiratory exam: Present: normal lung sounds bilaterally. Absent: respiratory distress, wheezes Cardiovascular Exam: Present: normal rhythm, tachycardia (105) GI/Abdominal exam: Present: soft. Absent: distended, tenderness Neurological exam: Present: alert, oriented X3, CN II-XII intact. Absent: motor sensory deficit Psychiatric exam: Present: normal affect, normal mood Skin exam: Present: warm, dry, intact. Absent: cyanosis, diaphoretic Course Vital Signs 10/04/21 07:36 Temperature 99.5 F Pulse Rate 116 H Respiratory 18 Rate Blood Pressure 127/69 O2 Sat by Pulse 96 Oximetry Medical Decision Making - Medical Decision Making 62-year-old female with coronavirus. Patient well-appearing. She is currently taking vitamin C, zinc, vitamin D. She's given monoclonal antibody infusion in the emergency department. Given return parameters. Disposition Clinical Impression: COVID-19 Disposition: HOME SELF-CARE Condition: Fair Instructions (If sedation given, give patient instructions): COVID-19 (Coronavirus Disease 2019) (ED) Is patient prescribed a controlled substance at d/c from ED?: No Referrals: Amparo Stewart MD [Primary Care Provider] - 1-2 days Time of Disposition: 09:00
[2021-10-04] MEDS ORDERED: BEBTELOVIMAB (EUA) 175 MG/2 ML VIAL IV ONE (08:00)
[2021-10-04 09:22] VITALS: BP 121/73; PULSE 91; RESP 15
== END 2021-10-04 09:22 | disposition home or self-care (01) ==
LOC: EC 07:32
DX: U07.1 COVID-19 (principal); I10 Essential (primary) hypertension; E11.9 Type 2 diabetes mellitus without complications; E78.5 Hyperlipidemia, unspecified; Z79.82 Long term (current) use of aspirin; Z79.02 Long term (current) use of antithrombotics/antiplatelets; Z79.84 Long term (current) use of oral hypoglycemic drugs
CPT/HCPCS: 99283; Q0222

== ENCOUNTER 2022-04-29 14:36 | Observation (INO) | payer MEDICARE, OTHER ==
[2022-04-29] MEDS ORDERED: NITROGLYCERIN SL TABS 0.4 MG TAB SUBLINGUAL STA (15:09)
[2022-04-29] MEDS ORDERED: LORazepam 2 MG/ML INJ IV STA (15:09)
[2022-04-29] MEDS ORDERED: NITROGLYCERIN OINT 1 INCH/GM PACKET TOPICAL STA (15:09)
[2022-04-29 15:24] LABS: Basophils # (A) 0.1 k/uL (0-0.2); Basophils % (A) 1 %; Eosinophils # (A) 0.3 k/uL (0-0.7); Eosinophils % (A) 4 %; HCT 39.4 % (34.0-46.0); HGB 13.5 gm/dL (11.4-16.0); Lymphocytes # (A) 1.6 k/uL (1.0-4.8); Lymphocytes % (A) 24 %; MCHC 34.2 g/dL (31.0-37.0); MCV 90.6 fL (80.0-100.0); Mean Platelet Volume 7.1; Monocytes # (A) 0.4 k/uL (0-1.0); Monocytes % (A) 6 %; Neutrophils # (A) 4.2 k/uL (1.3-7.7); Neutrophils % (A) 61 %; Platelet Count 231 k/uL (150-450); RBC 4.35 m/uL (3.80-5.40); RDW 13.5 % (11.5-15.5); WBC 6.8 k/uL (3.8-10.6)
[2022-04-29 15:37] LABS: ALT 41 U/L (4-34); AST 37 U/L (14-36); African American GFR (CKD) >90 (>60 ml/min/1.73 sqM); Albumin 4.7 g/dL (3.5-5.0); Alkaline Phosphatase 97 U/L (38-126); Anion Gap 12 mmol/L; Blood Urea Nitrogen 15 mg/dL (7-17); Carbon Dioxide 21 mmol/L (22-30); Chloride 105 mmol/L (98-107); Glucose 106 mg/dL (74-99); Magnesium 1.5 mg/dL (1.6-2.3); Non-African American GFR(CKD) >90 (>60 ml/min/1.73 sqM); Potassium 3.9 mmol/L (3.5-5.1); Sodium 138 mmol/L (137-145); Total Bilirubin 0.9 mg/dL (0.2-1.3); Total Protein 7.3 g/dL (6.3-8.2)
[2022-04-29 15:40] LABS: INR 0.9 (<1.2); Partial Thromboplastin Time 22.5 sec (22.0-30.0); Prothrombin Time 9.9 sec (9.0-12.0)
--- NOTE | 2022-04-29 16:05 | XR ---
EXAMINATION TYPE: XR chest 2V DATE OF EXAM: 04/29/2022 COMPARISON: 08/26/2019 HISTORY: Chest pain TECHNIQUE: FINDINGS: Heart is normal. Lungs are clear of consolidation. There are no hilar masses. There are shweta st leads. Bony thorax is intact. IMPRESSION: No active cardiopulmonary disease. Normal heart.
[2022-04-29] MEDS ORDERED: MAGNESIUM SULFATE-D5W PMX 1 GM in DEXTROSE/WATER 1 100ML.BAG IVPB ONE (16:50)
--- NOTE | 2022-04-29 17:02 | ED ---
General Adult HPI - General Chief complaint: Chest Pain Stated complaint: Chest pains Time Seen by Provider: 04/29/22 16:45 Source: patient, RN notes reviewed, old records reviewed Mode of arrival: ambulatory Limitations: no limitations - History of Present Illness Initial comments: This is a 71-year-old female who presents emergency department with past medical history significant for diabetes hypertension high cholesterol and family history of heart disease. Patient states today she had chest pain that lasted about 5 minutes and she became a little diaphoretic and it slowly subsided. Patient denies any shortness of breath or difficulty breathing. Patient states currently she has no chest pain. Patient denies any nausea vomiting. Patient d enies abdominal pain. Patient states the pain was pretty significant and that's why she came to the emergency department. Patient did take a couple of aspirin at home. - Related Data Home Medications Medication Instructions Recorded Confirmed Aspirin EC [Ecotrin Low Dose] 81 mg PO HS 08/26/19 08/26/19 Atorvastatin [Lipitor] 40 mg PO HS 08/26/19 08/26/19 Cholecalciferol [Vitamin D3 (25 2,000 unit PO HS 08/26/19 08/26/19 Mcg = 1000 Iu)] metFORMIN HCL [Glucophage] 1,000 mg PO BID 08/26/19 08/26/19 Previous Rx's Medication Instructions Recorded Triamterene-Hctz 37.5-25Mg 1 each PO DAILY #90 cap 08/27/19 [Dyazide 37.5-25 Capsule] lisinopriL [Zestril] 20 mg PO DAILY #90 tab 08/27/19 Allergies Allergy/AdvReac Type Severity Reaction Status Date / Time No Known Allergies Allergy Verified 04/29/22 14:45 Review of Systems ROS Statement: Those systems with pertinent positive or pertinent negative responses have been documented in the HPI. ROS Other: All systems not noted in ROS Statement are negative. Past Medical History Past Medical History: Diabetes Mellitus, Hyperlipidemia, Hypertension Additional Past Medical History / Comment(s): breast biopsy-negative. History of Any Multi-Drug Resistant Organisms: None Reported Past Surgical History: No Surgical Hx Reported Past Anesthesia/Blood Transfusion Reactions: No Reported Reaction Past Psychological History: No Psychological Hx Reported Smoking Status: Never smoker Past Alcohol Use History: Occasional Past Drug Use History: None Reported General Exam - General Exam Comments Initial Comments: GENERAL: Patient is well-developed and well-nourished. Patient is nontoxic and well- hydrated and is in no acute distress. ENT: Neck is soft and supple. No significant lymphadenopathy is noted. Oropharynx is clear. Moist mucous membranes. Neck has full range of motion without eliciting any pain. EYES: The sclera were anicteric and conjunctiva were pink and moist. Extraocular movements were intact and pupils were equal round and reactive to light. Eyelids were unremarkable. PULMONARY: Unlabored respirations. Good breath sounds bilaterally. No audible rales rhonchi or wheezing was noted. CARDIOVASCULAR: There is a regular rate and rhythm without any murmurs gallops or rubs. ABDOMEN: Soft and nontender with normal bowel sounds. SKIN: Skin is clear with no lesions or rashes and otherwise unremarkable. NEUROLOGIC: Patient is alert and oriented x3. Cranial nerves II through XII are grossly intact. Motor and sensory are also intact. Normal speech, volume and content. Symmetrical smile. MUSCULOSKELETAL: Normal extremities with adequate strength and full range of motion. No lower extremity swelling or edema. No calf tenderness. LYMPHATICS: No significant lymphadenopathy is noted PSYCHIATRIC: Normal psychiatric evaluation. Limitations: no limitations Course Vital Signs 04/29/22 04/29/22 14:42 16:40 Temperature 98.4 F Pulse Rate 58 L 90 Respiratory 20 18 Rate Blood Pressure 159/95 108/72 O2 Sat by Pulse 99 95 Oximetry Medical Decision Making - Medical Decision Making EKG was interpreted by myself. EKG shows sinus tachycardia with occasional PVC at 100 bpm MT interval 100 QRS is 80 QT interval 333 QTC is 397. Patient's EKG shows occasional PVC but there is no ST segment elevation or depression. Was pt. sent in by a medical professional or institution (, PA, HVAC INSTRUCTOR, urgent care, hospital, or half-way...) When possible be specific @ -No Did you speak to anyone other than the patient for history (EMS, parent, family, police, friend...)? What history was obtained from this source @ -No Did you review nursing and triage notes (agree or disagree)? Why? @ -I reviewed and agree with nursing and triage notes Were old charts reviewed (outside hosp., previous admission, EMS record, old EKG, old radiological studies, urgent care reports/EKG's, half-way records)? Report findings @ -I reviewed prior laboratory values and compared to today's. I also reviewed prior radiological studies. Differential Diagnosis (chest pain, altered mental status, abdominal pain women, abdominal pain men, vaginal bleeding, weakness, fever, dyspnea, syncope, headache, dizziness, GI bleed, back pain, seizure, CVA, palpatations, mental health, musculoskeletal)? @ -Differential Chest Pain: Stable Angina, Unstable Angina, STEMI, NSTEMI Aortic Dissection, Pneumothorax, Musculoskeletal, Esophageal Spasm GERD, Cholecystitis, Pancreatitis, Zoster, this is not meant to be an all-inclusive list. EKG interpreted by me (3pts min.). @ -As above X-rays interpreted by me (1pt min.). @ -Chest x-ray was interpreted by myself I saw no acute abnormality. CT interpreted by me (1pt min.). @ -None done U/S interpreted by me (1pt. min.). @ -None done What testing was considered but not performed or refused? (CT, X-rays, U/S, labs)? Why? @ -None What meds were considered but not given or refused? Why? @ -None Did you discuss the management of the patient with other professionals (professionals i.e. , PA, HVAC INSTRUCTOR, lab, RT, psych nurse, social media designer, oil well services supervisor, teacher, airfield engineer officer, watch case polisher)? Give summary @ -I spoke with the patient was given hospice agreed to admit the patient admitted the patient wrote admitting orders Was smoking cessation discussed for >3mins.? @ -No Was critical care preformed (if so, how long)? @ -No Were there social determinants of health that impacted care today? How? (Homelessness, low income, unemployed, alcoholism, drug addiction, transportation, low edu. Level, literacy, decrease access to med. care, long-term, rehab)? @ -No Was there de-escalation of care discussed even if they declined (Discuss DNR or withdrawal of care, Hospice)? DNR status @ -No What co-morbidities impacted this encounter? (DM, HTN, Smoking, COPD, CAD, Cancer, CVA, ARF, Chemo, Hep., AIDS, mental health diagnosis, sleep apnea, morbid obesity)? @ -None Was patient admitted / discharged? Hospital course, mention meds given and route, prescriptions, significant lab abnormalities, going to OR and other pertinent info. @ -Patient will be admitted to the hospital for chest pain. I was the significant hospice agreed to admit the patient admitted the patient will be endorsed I consult cardiology patient had no more chest pain while in the emergency department. She did not receive aspirin here because she took at home she did get Nitropaste which will be continued on the floor. Undiagnosed new problem with uncertain prognosis? @ -No Drug Therapy requiring intensive monitoring for toxicity (Heparin, Nitro, Insulin, Cardizem)? @ -No Were any procedures done? @ -No Diagnosis/symptom? @ -Chest pain Acute, or Chronic, or Acute on Chronic? @ -Acute Uncomplicated (without systemic symptoms) or Complicated (systemic symptoms)? @ -Complicated Side effects of treatment? @ -No Exacerbation, Progression, or Severe Exacerbation? @ -No Poses a threat to life or bodily function? How? (Chest pain, [place], [place], pneumonia, PE, COPD, DKA, ARF, appy, cholecystitis, CVA, Diverticulitis, Homicidal, Suicidal, threat to staff... and all critical care pts) @ -As this could potentially be coronary artery disease which could lead to myocardial infarction which could lead to end organ dysfunction - Lab Data Result diagrams: 04/29/22 15:16 04/29/22 15:16 Lab Results 04/29/22 04/29/22 04/29/22 Range/Units 15:16 15:16 15:16 WBC 6.8 (3.8-10.6) k/uL RBC 4.35 (3.80-5.40) m/uL Hgb 13.5 (11.4-16.0) gm/dL Hct 39.4 (34.0-46.0) % MCV 90.6 (80.0-100.0) fL MCH 31.0 (25.0-35.0) pg MCHC 34.2 (31.0-37.0) g/dL RDW 13.5 (11.5-15.5) % Plt Count 231 (150-450) k/uL MPV 7.1 Neutrophils % 61 % Lymphocytes % 24 % Monocytes % 6 % Eosinophils % 4 % Basophils % 1 % Neutrophils # 4.2 (1.3-7.7) k/uL Lymphocytes # 1.6 (1.0-4.8) k/uL Monocytes # 0.4 (0-1.0) k/uL Eosinophils # 0.3 (0-0.7) k/uL Basophils # 0.1 (0-0.2) k/uL PT 9.9 (9.0-12.0) sec INR 0.9 (<1.2) APTT 22.5 (22.0-30.0) sec Sodium 138 (137-145) mmol/L Potassium 3.9 (3.5-5.1) mmol/L Chloride 105 (98-107) mmol/L Carbon Dioxide 21 L (22-30) mmol/L Anion Gap 12 mmol/L BUN 15 (7-17) mg/dL Creatinine 0.64 (0.52-1.04) mg/dL Est GFR (CKD-EPI)AfAm >90 (>60 ml/min/1.73 sqM) Est GFR (CKD-EPI)NonAf >90 (>60 ml/min/1.73 sqM) Glucose 106 H (74-99) mg/dL Calcium 9.0 (8.4-10.2) mg/dL Magnesium 1.5 L (1.6-2.3) mg/dL Total Bilirubin 0.9 (0.2-1.3) mg/dL AST 37 H (14-36) U/L ALT 41 H (4-34) U/L Alkaline Phosphatase 97 (38-126) U/L Troponin I (0.000-0.034) ng/mL Total Protein 7.3 (6.3-8.2) g/dL Albumin 4.7 (3.5-5.0) g/dL 04/29/22 Range/Units 15:16 WBC (3.8-10.6) k/uL RBC (3.80-5.40) m/uL Hgb (11.4-16.0) gm/dL Hct (34.0-46.0) % MCV (80.0-100.0) fL MCH (25.0-35.0) pg MCHC (31.0-37.0) g/dL RDW (11.5-15.5) % Plt Count (150-450) k/uL MPV Neutrophils % % Lymphocytes % % Monocytes % % Eosinophils % % Basophils % % Neutrophils # (1.3-7.7) k/uL Lymphocytes # (1.0-4.8) k/uL Monocytes # (0-1.0) k/uL Eosinophils # (0-0.7) k/uL Basophils # (0-0.2) k/uL PT (9.0-12.0) sec INR (<1.2) APTT (22.0-30.0) sec Sodium (137-145) mmol/L Potassium (3.5-5.1) mmol/L Chloride (98-107) mmol/L Carbon Dioxide (22-30) mmol/L Anion Gap mmol/L BUN (7-17) mg/dL Creatinine (0.52-1.04) mg/dL Est GFR (CKD-EPI)AfAm (>60 ml/min/1.73 sqM) Est GFR (CKD-EPI)NonAf (>60 ml/min/1.73 sqM) Glucose (74-99) mg/dL Calcium (8.4-10.2) mg/dL Magnesium (1.6-2.3) mg/dL Total Bilirubin (0.2-1.3) mg/dL AST (14-36) U/L ALT (4-34) U/L Alkaline Phosphatase (38-126) U/L Troponin I <0.012 (0.000-0.034) ng/mL Total Protein (6.3-8.2) g/dL Albumin (3.5-5.0) g/dL Disposition Clinical Impression: Chest pain Disposition: ADMITTED IP TO THIS [facility] Referrals: Amparo Stewart MD [Primary Care Provider] - 1-2 days Time of Disposition: 17:05
[2022-04-29] MEDS ORDERED: NITROGLYCERIN SL TABS 0.4 MG TAB SUBLINGUAL PRN (17:05)
[2022-04-29] MEDS: NITROGLYCERIN OINT 1 INCH/GM PACKET TOPICAL SCH (20:12)
[2022-04-29 20:46] VITALS: RESP 16
[2022-04-29] MEDS ORDERED: ATORVASTATIN 40 MG TAB PO SCH (21:00)
[2022-04-29] MEDS ORDERED: CHOLECALCIFEROL 125 MCG (5000 IU) TABLET PO SCH (21:00)
[2022-04-29] MEDS ORDERED: lisinopriL 10 MG TAB PO SCH (21:00)
[2022-04-29] MEDS ORDERED: ASPIRIN 81 MG PO SCH (21:00)
[2022-04-29 21:15] LABS: Glucose,Whole Blood 204 mg/dL (70-110)
[2022-04-29] MEDS: INSULIN ASPART (NovoLOG) 100 UNIT/ML VIAL SQ SCH (22:19)
[2022-04-30] MEDS: NITROGLYCERIN OINT 1 INCH/GM PACKET TOPICAL SCH ×3 (00:16→12:33)
[2022-04-30] MEDS: INSULIN ASPART (NovoLOG) 100 UNIT/ML VIAL SQ SCH ×2 (06:29→12:34)
[2022-04-30 06:30] LABS: Glucose,Whole Blood 108 mg/dL (70-110)
[2022-04-30 08:15] VITALS: BP 113/67; PULSE 77; TEMP 98
[2022-04-30] MEDS ORDERED: ZINC SULFATE 220 MG CAP PO SCH (09:00)
[2022-04-30] MEDS ORDERED: ASPIRIN 325 MG TAB PO SCH (09:00)
[2022-04-30] MEDS ORDERED: ASCORBIC ACID 500 MG TAB PO SCH (09:00)
--- NOTE | 2022-04-30 10:42 | P.CRDCN ---
History of Present Illness History of present illness: HISTORY OF PRESENTING ILLNESS Patient is a pleasant 71-year-old female with history of diabetes mellitus type 2, hypertension, hyperlipidemia, family history of CAD who presents secondary to episodes of chest pain. She states she had 5-10 minutes of substernal chest pain and was somewhat diaphoretic. She is actually visiting her father who is currently hospitalized. She took a few aspirin at home and presented to the emergency department. She denies any associated shortness breath. She has had no recurrence since admission. She did previously see Dr Craig 2-1/2 years ago however was frustrated given there is some documentation of pacemaker/defibrillator in her chart however she does not have any pacemaker defibrillator. Troponin normal 3, AST 37, ALP 41, magnesium 1.5. EKG shows sinus tachycardia, normal axis, rare PVCs, no significant ST or T-wave abnormalities. REVIEW OF SYSTEMS At the time of my exam: CONSTITUTIONAL: Denies fever or chills. CARDIOVASCULAR: +chest pain, no shortness of breath, orthopnea, PND or palpitations. RESPIRATORY: Denies cough. GASTROINTESTINAL: Denies abdominal pain, diarrhea, constipation, nausea or vomiting. MUSCULOSKELETAL: Denies myalgias. NEUROLOGIC: Denies numbness, tingling or weakness. ENDOCRINE: Denies fatigue, weight change, polydipsia or polyurina. GENITOURINARY: Denies burning, hematuria or urgency with micturation. HEMATOLOGIC: Denies history of anemia or bleeding. PHYSICAL EXAMINATION Vital signs reviewed. CONSTITUTIONAL: No apparent distress. HEENT: Head is normocephalic. Pupils are equal, round. Sclerae anicteric. Mucous membranes of the mouth are moist. No JVD. No carotid bruit. CHEST EXAMINATION: Lungs are clear to auscultation. No chest wall tenderness is noted on palpation or with deep breathing. HEART EXAMINATION: Regular rate and rhythm. S1, S2 heard. No murmurs, gallops or rub. ABDOMEN: Soft, nontender. Positive bowel sounds. EXTREMITIES: 2+ peripheral pulses, no lower extremity edema and no calf tenderness. NEUROLOGIC EXAMINATION: Patient is awake, alert and oriented x3. ASSESSMENT 1. Atypical chest pain 2. Hypertension 3. Hyperlipidemia 4. Diabetes mellitus type 2 5. Family history of CAD PLAN Patient's chest pain is atypical and troponins normal 3. She has had no recurr ence. EKG without significant ischemic changes. We discussed discharge with outpatient stress testing and patient agreeable. Past Medical History Past Medical History: Diabetes Mellitus, Hyperlipidemia, Hypertension Additional Past Medical History / Comment(s): breast biopsy-negative. History of Any Multi-Drug Resistant Organisms: None Reported Past Surgical History: No Surgical Hx Reported Past Anesthesia/Blood Transfusion Reactions: No Reported Reaction Past Psychological History: No Psychological Hx Reported Smoking Status: Never smoker Past Alcohol Use History: Occasional Past Drug Use History: None Reported Medications and Allergies Home Medications Medication Instructions Recorded Confirmed Type Aspirin EC [Ecotrin Low Dose] 81 mg PO HS 08/26/19 04/29/22 History Atorvastatin [Lipitor] 40 mg PO HS 08/26/19 04/29/22 History metFORMIN HCL [Glucophage] 1,000 mg PO BID 08/26/19 04/29/22 History Ascorbic Acid [Vitamin C] 500 mg PO DAILY 04/29/22 04/29/22 History Cholecalciferol [Vitamin D3 (125 125 mcg PO HS 04/29/22 04/29/22 History Mcg = 5000 Iu)] Zinc Gluconate [Zinc] 50 mg PO DAILY 04/29/22 04/29/22 History lisinopriL [Zestril] 10 mg PO HS 04/29/22 04/29/22 History Allergies Allergy/AdvReac Type Severity Reaction Status Date / Time No Known Allergies Allergy Verified 04/29/22 17:58 Physical Exam Vitals: Vital Signs Temp Pulse Pulse Resp BP BP BP 04/30/22 07:00 98 F 77 16 113/67 04/30/22 03:48 97.7 F 79 16 107/58 04/29/22 19:26 97.9 F 89 16 153/88 04/29/22 17:55 98.6 F 88 18 108/72 04/29/22 16:40 90 18 108/72 04/29/22 14:42 98.4 F 58 L 20 159/95 Pulse Ox 04/30/22 07:00 97 04/30/22 03:48 98 04/29/22 19:26 97 04/29/22 17:55 98 04/29/22 16:40 95 04/29/22 14:42 99 Intake and Output 04/29/22 04/30/22 04/30/22 22:59 06:59 14:59 Other: # Voids 1 2 Weight 74.843 kg Results 04/29/22 15:16 04/29/22 15:16 Cardiac Enzymes 04/29/22 04/29/22 04/29/22 Range/Units 15:16 15:16 19:10 AST 37 H (14-36) U/L Troponin I <0.012 <0.012 (0.000-0.034) ng/mL 04/29/22 Range/Units 22:32 AST (14-36) U/L Troponin I <0.012 (0.000-0.034) ng/mL Coagulation 04/29/22 Range/Units 15:16 PT 9.9 (9.0-12.0) sec APTT 22.5 (22.0-30.0) sec CBC 04/29/22 Range/Units 15:16 WBC 6.8 (3.8-10.6) k/uL RBC 4.35 (3.80-5.40) m/uL Hgb 13.5 (11.4-16.0) gm/dL Hct 39.4 (34.0-46.0) % Plt Count 231 (150-450) k/uL Comprehensive Metabolic Panel 04/29/22 Range/Units 15:16 Sodium 138 (137-145) mmol/L Potassium 3.9 (3.5-5.1) mmol/L Chloride 105 (98-107) mmol/L Carbon Dioxide 21 L (22-30) mmol/L BUN 15 (7-17) mg/dL Creatinine 0.64 (0.52-1.04) mg/dL Glucose 106 H (74-99) mg/dL Calcium 9.0 (8.4-10.2) mg/dL AST 37 H (14-36) U/L ALT 41 H (4-34) U/L Alkaline Phosphatase 97 (38-126) U/L Total Protein 7.3 (6.3-8.2) g/dL Albumin 4.7 (3.5-5.0) g/dL Current Medications Generic Name Dose Route Start Last Admin Trade Name Freq PRN Reason Stop Dose Admin Ascorbic Acid 500 mg 04/30/22 09:00 04/30/22 08:55 Ascorbic Acid 500 Mg Tab PO 500 mg DAILY [facility] Administration Aspirin 81 mg 04/29/22 21:00 04/29/22 21:08 Aspirin 81 Mg PO 81 mg HS [facility] Administration Atorvastatin Calcium 40 mg 04/29/22 21:00 04/29/22 21:08 Atorvastatin 40 Mg Tab PO 40 mg HS [facility] Administration Cholecalciferol 125 mcg 04/29/22 21:00 04/29/22 21:08 Cholecalciferol 125 Mcg (5000 Iu) Tablet PO 125 mcg HS [facility] Administration Insulin Aspart 0 unit 04/29/22 21:00 04/30/22 06:29 Insulin Aspart (Novolog) 100 Unit/Ml Vial SQ 05/06/22 21:01 Not Given ACHS [facility] Protocol Lisinopril 10 mg 04/29/22 21:00 04/29/22 21:08 Lisinopril 10 Mg Tab PO 10 mg HS [facility] Administration Nitroglycerin 0.4 mg 04/29/22 17:05 Nitroglycerin Sl Tabs 0.4 Mg Tab SUBLINGUAL Q5M PRN Chest Pain Nitroglycerin 1 inch 04/29/22 19:00 04/30/22 05:45 Nitroglycerin Oint 1 Inch/Gm Packet TOPICAL Not Given Q6HR [facility] Zinc Sulfate 220 mg 04/30/22 09:00 04/30/22 08:55 Zinc Sulfate 220 Mg Cap PO 220 mg DAILY [facility] Administration Intake and Output 04/29/22 04/30/22 04/30/22 22:59 06:59 14:59 Other: # Voids 1 2 Weight 74.843 kg 04/29/22 15:16 04/29/22 15:16
[2022-04-30 11:27] LABS: ALT 32 U/L (8-44); AST 24 U/L (13-35); African American GFR (CKD) 99.4 (60.0-200.0); Albumin/Globulin Ratio 2.21 (1.60-3.17); Alkaline Phosphatase 75 U/L (41-126); BUN/Creat Ratio 20.75 Ratio (12.00-20.00); Bilirubin, Conjugated <0.20 mg/dL (0.20-0.40); Blood Urea Nitrogen 14.9 mg/dL (9.0-27.0); Calcium 8.7 mg/dL (8.7-10.3); Chloride 105 mmol/L (96-109); Chol/HDL Ratio 3.44 Ratio; Globulin 1.8 g/dL (1.6-3.3); Glucose 103 mg/dL (70-110); LDL Cholesterol,Calculated 96.7 mg/dL (0.0-131.0); Magnesium 1.9 mg/dL (1.5-2.4); Non-African American GFR(CKD) 85.7 (60.0-200.0); Potassium 3.8 mmol/L (3.5-5.5); Sodium 141 mmol/L (135-145); Total Protein 5.8 g/dL (6.2-8.2)
[2022-04-30 12:30] LABS: Glucose,Whole Blood 131 mg/dL (70-110)
== END 2022-04-30 13:50 | disposition home or self-care (01) ==
LOC: EC 14:36 → 6NMEDSUR 17:07
PROVIDERS: ADMIT Internal Medicine; ATTEND Internal Medicine
DX: R07.89 Other chest pain (principal); I10 Essential (primary) hypertension; E78.00 Pure hypercholesterolemia, unspecified; E11.9 Type 2 diabetes mellitus without complications; R00.0 Tachycardia, unspecified; R61 Generalized hyperhidrosis; Z79.84 Long term (current) use of oral hypoglycemic drugs; Z79.82 Long term (current) use of aspirin; Z79.899 Other long term (current) drug therapy; Z98.890 Other specified postprocedural states; Z82.49 Family history of ischemic heart disease and other diseases of the circulatory system
CPT/HCPCS: 96374; 99285; 36415; 93005; 80061; 80053; 80048; 80076; 83735 ×2; 84484; 85025; 85610; 85730; 71046; G0378 ×2; J2060; J3475

== ENCOUNTER 2023-01-17 06:29 | Emergency (ER) | payer MEDICARE, OTHER ==
--- NOTE | 2023-01-17 06:50 | ED ---
Neck Injury/Pain HPI - General Chief Complaint: Neck Pain/Injury Stated Complaint: Neck and shoulder Pain Time Seen by Provider: 01/17/23 06:37 Source: patient, RN notes reviewed Mode of arrival: ambulatory Limitations: no limitations - History of Present Illness Initial Comments: Patient is a 72-year-old female presented to the ER with a chief complaint of left shoulder/neck pain. Patient states the pain started a couple of days ago. She describes the pain as a tight achy constant pain. She has been alternating ice and heat along with taking aspirin with little relief. Patient denies any injuries or trauma. Denies any paresthesias or weakness. - Related Data Home Medications Medication Instructions Recorded Confirmed Aspirin EC [Ecotrin Low Dose] 81 mg PO HS 08/26/19 04/29/22 Atorvastatin [Lipitor] 40 mg PO HS 08/26/19 04/29/22 metFORMIN HCL [Glucophage] 1,000 mg PO BID 08/26/19 04/29/22 Ascorbic Acid [Vitamin C] 500 mg PO DAILY 04/29/22 04/29/22 Cholecalciferol [Vitamin D3 (125 125 mcg PO HS 04/29/22 04/29/22 Mcg = 5000 Iu)] Zinc Gluconate [Zinc] 50 mg PO DAILY 04/29/22 04/29/22 lisinopriL [Zestril] 10 mg PO HS 04/29/22 04/29/22 Previous Rx's Medication Instructions Recorded Cyclobenzaprine [Flexeril] 5 mg PO TID #15 tab 01/17/23 Lidocaine 5% Patch [Lidoderm 5% 1 patch TOPICAL DAILY #10 patch 01/17/23 Patch] Allergies Allergy/AdvReac Type Severity Reaction Status Date / Time No Known Allergies Allergy Verified 01/17/23 06:35 Review of Systems ROS Statement: Those systems with pertinent positive or pertinent negative responses have been documented in the HPI. ROS Other: All systems not noted in ROS Statement are negative. Past Medical History Past Medical History: Diabetes Mellitus, Hyperlipidemia, Hypertension Additional Past Medical History / Comment(s): breast biopsy-negative. History of Any Multi-Drug Resistant Organisms: None Reported Past Surgical History: No Surgical Hx Reported Past Anesthesia/Blood Transfusion Reactions: No Reported Reaction Past Psychological History: No Psychological Hx Reported Smoking Status: Never smoker Past Alcohol Use History: Occasional Past Drug Use History: None Reported General Exam Limitations: no limitations Neck exam: Present: normal inspection, tenderness (left trapezius ), full ROM Respiratory exam: Present: normal lung sounds bilaterally. Absent: respiratory distress, wheezes, rales, rhonchi, stridor Cardiovascular Exam: Present: regular rate, normal rhythm, normal heart sounds. Absent: systolic murmur, diastolic murmur, rubs, gallop, clicks Extremities exam: Present: normal inspection, full ROM, tenderness (left trapezius muscle ), other (2+ left radial pulse, equal bilateral automatic engraver strength ) Skin exam: Present: warm, dry, intact, normal color. Absent: rash Course Vital Signs 01/17/23 06:31 Temperature 98.3 F Pulse Rate 106 H Respiratory 16 Rate Blood Pressure 157/87 O2 Sat by Pulse 98 Oximetry Medical Decision Making - Medical Decision Making Was pt. sent in by a medical professional or institution (, PA, IT HELP DESK TECHNICIAN, urgent care, hospital, or assisted...) When possible be specific @ -No Did you speak to anyone other than the patient for history (EMS, parent, family, police, friend...)? What history was obtained from this source @ -No Did you review nursing and triage notes (agree or disagree)? Why? @ -I reviewed and agree with nursing and triage notes Were old charts reviewed (outside hosp., previous admission, EMS record, old EKG, old radiological studies, urgent care reports/EKG's, assisted records)? Report findings @ -No old charts were reviewed Differential Diagnosis (chest pain, altered mental status, abdominal pain women, abdominal pain men, vaginal bleeding, weakness, fever, dyspnea, syncope, headache, dizziness, GI bleed, back pain, seizure, CVA, palpatations, mental health, musculoskeletal)? @ -Differential Back Pain: Strain, zoster, muscle spam, epidural abscess, vertebral osteomyelitis, discitis, fracture, subluxation, disc herniation, DJD, spinal stenosis,this is not meant to be an all-inclusive list.cable EKG interpreted by me (3pts min.). @ -None X-rays interpreted by me (1pt min.). @ -Left shoulder x-ray significant for mild glenohumeral and AC joint arthritis. Cervical spine xray shows no acute fracture or dislocation. CT interpreted by me (1pt min.). @ -None done U/S interpreted by me (1pt. min.). @ -None done What testing was considered but not performed or refused? (CT, X-rays, U/S, labs)? Why? @ -None What meds were considered but not given or refused? Why? @ -None Did you discuss the management of the patient with other professionals (professionals i.e. , PA, IT HELP DESK TECHNICIAN, lab, RT, psych nurse, licensed social worker, equal opportunity counselor, teacher, youth corrections officer, casework specialist)? Give summary @ -No Was smoking cessation discussed for >3mins.? @ -No Was critical care preformed (if so, how long)? @ -No Were there social determinants of health that impacted care today? How? (Homelessness, low income, unemployed, alcoholism, drug addiction, transportation, low edu. Level, literacy, decrease access to med. care, usp, rehab)? @ -No Was there de-escalation of care discussed even if they declined (Discuss DNR or withdrawal of care, Hospice)? DNR status @ -No What co-morbidities impacted this encounter? (DM, HTN, Smoking, COPD, CAD, Cancer, CVA, ARF, Chemo, Hep., AIDS, mental health diagnosis, sleep apnea, morbid obesity)? @ -None Was patient admitted / discharged? Hospital course, mention meds given and route, prescriptions, significant lab abnormalities, going to OR and other pertinent info. @ -Patient is 72-year-old female presenting to ER with a chief complaint of left shoulder/neck pain. Patient denies trauma or fevers. Left shoulder and cervical spine x-rays shows no acute fracture or dislocation. Patient will be discharged home with lidocaine patches and low-dose muscle relaxers. Patient advised to follow-up with PCP. Undiagnosed new problem with uncertain prognosis? @ -No Drug Therapy requiring intensive monitoring for toxicity (Heparin, Nitro, Insulin, Cardizem)? @ -No Were any procedures done? @ -No Diagnosis/symptom? @ -Muscle spasm Acute, or Chronic, or Acute on Chronic? @ -Acute Uncomplicated (without systemic symptoms) or Complicated (systemic symptoms)? @ -Uncomplicated Side effects of treatment? @ -No Exacerbation, Progression, or Severe Exacerbation? @ -No Poses a threat to life or bodily function? How? (Chest pain, [place], [place], pneumonia, PE, COPD, DKA, ARF, appy, cholecystitis, CVA, Diverticulitis, Homicidal, Suicidal, threat to staff... and all critical care pts) @ -No - Radiology Data Radiology results: report reviewed, image reviewed Disposition Clinical Impression: Muscle spasm Disposition: HOME SELF-CARE Condition: Stable Instructions (If sedation given, give patient instructions): Muscle Spasm (ED) Additional Instructions: Please return to the Emergency Department if symptoms worsen or any other concerns. Patient advised to continue conservative measures: stretching, massage, and [id number] analgesics. Patient advised follow-up with PCP. Patient expressed understanding. Prescriptions: Cyclobenzaprine [Flexeril] 5 mg PO TID #15 tab Lidocaine 5% Patch [Lidoderm 5% Patch] 1 patch TOPICAL DAILY #10 patch Is patient prescribed a controlled substance at d/c from ED?: No Referrals: Amparo Stewart MD [Primary Care Provider] - 1-2 days Time of Disposition: 08:20
--- NOTE | 2023-01-17 07:42 | XR ---
EXAM: XR Left Shoulder Complete, 2 or More Views CLINICAL HISTORY: ITS.[email or web address] XR Reason: pain TECHNIQUE: Two or more views of the left shoulder. COMPARISON: No relevant prior studies available. IMPRESSION: 1. No evidence of acutely displaced fracture or dislocation within the left shoulder. 2. Mild left glenohumeral osteoarthrosis. Additional AC joint osteoarthrosis. 3. Consider MRI if there is further concern.
--- NOTE | 2023-01-17 07:43 | XR ---
EXAM: XR Cervical Spine, 2 or 3 Views CLINICAL HISTORY: ITS.REASON XR Reason: pain TECHNIQUE: Frontal and lateral views of the cervical spine. COMPARISON: No relevant prior studies available. IMPRESSION: 1. No evidence of acutely displaced fracture or dislocation within the cervical spine. Please note this is markedly limited given bone demineralization. Recommend cross-sectional imaging if there is further concern. 2. Loss of cervical lordosis which can be seen with patient positioning or muscle spasm. 3. Degenerative changes.
[2023-01-17 08:42] VITALS: BP 152/89; PULSE 83; RESP 17; TEMP 98.1
== END 2023-01-17 08:40 | disposition home or self-care (01) ==
LOC: EC 06:29
DX: M47.812 Spondylosis without myelopathy or radiculopathy, cervical region (principal); M19.012 Primary osteoarthritis, left shoulder; E11.9 Type 2 diabetes mellitus without complications; I10 Essential (primary) hypertension; E78.5 Hyperlipidemia, unspecified; Z79.82 Long term (current) use of aspirin; Z79.899 Other long term (current) drug therapy; Z79.84 Long term (current) use of oral hypoglycemic drugs
CPT/HCPCS: 72040; 99283